=== PATIENT | male | born 1970 | race Caucasian/White ===

== ENCOUNTER 2018-10-03 10:29 | Emergency (ER) | payer OTHER ==
[~2018-10-03] VITALS: Ht 162.6 cm; Wt 77.1 kg
== END 2018-10-03 15:53 | disposition home or self-care (01) ==
LOC: ER 10:29 → EDBD 11:12 → ER 15:53
DX: K62.5 Hemorrhage of anus and rectum (principal)

== ENCOUNTER 2018-10-24 05:56 | Day surgery (SDC) | payer OTHER ==
[2018-10-24] MEDS ORDERED: PERCOCET 5-3251 EACH PO (08:21)
[2018-10-24] MEDS ORDERED: RECTICARE30 GM TOP (08:22)
== END 2018-10-24 14:33 | disposition home or self-care (01) ==
LOC: CIR.AMB 05:56
DX: K60.1 Chronic anal fissure (principal); K62.5 Hemorrhage of anus and rectum